=== PATIENT | male | born 1990 | race Caucasian/White ===

== ENCOUNTER 2016-05-28 15:21 | Emergency (ER) | payer OTHER ==
[~2016-05-28] VITALS: Ht 175.3 cm; Wt 70.8 kg
[~2016-05-28 15:21] MED LIST: ALBUTEROL2.5 MG/0.1 INH; DEPAKOTE; NOHOMEMEDICATIONS; NORCO 5-325 TA1 EACH PO; SEROQUEL; VICODIN 5-5001 EACH PO; ZANTAC
[2016-05-28 15:22] VITALS: BP 112/67
[2016-05-28] MEDS ORDERED: TESSALON PERLE100 MG PO (16:08)
[2016-05-28] MEDS ORDERED: PROVENTIL HFA6.7 G1 INH (16:08)
== END 2016-05-28 16:30 | disposition home or self-care (01) ==
LOC: ER 15:21
DX: J20.9 Acute bronchitis, unspecified (principal); F31.9 Bipolar disorder, unspecified; J45.909 Unspecified asthma, uncomplicated; Z88.6 Allergy status to analgesic agent; F17.210 Nicotine dependence, cigarettes, uncomplicated